=== PATIENT | male | born 1955 | race Two or more races ===

== ENCOUNTER 2020-02-09 13:45 | Outpatient (CLI) | payer MEDICARE | END 2020-02-09 23:59 | disposition home health service (06) | LOC: WOU 13:45 | PROVIDERS: ATTEND Podiatrist Foot & Ankle Surgery | DX: E11.621 Type 2 diabetes mellitus with foot ulcer (principal); E11.52 Type 2 diabetes mellitus with diabetic peripheral angiopathy with gangrene; I96 Gangrene, not elsewhere classified; L97.515 Non-pressure chronic ulcer of other part of right foot with muscle involvement without evidence of necrosis; L97.412 Non-pressure chronic ulcer of right heel and midfoot with fat layer exposed; L97.528 Non-pressure chronic ulcer of other part of left foot with other specified severity; E11.69 Type 2 diabetes mellitus with other specified complication; M86.9 Osteomyelitis, unspecified; Z79.4 Long term (current) use of insulin; Z89.432 Acquired absence of left foot; Z89.431 Acquired absence of right foot; Z79.82 Long term (current) use of aspirin; Z79.899 Other long term (current) drug therapy | CPT/HCPCS: G0463 ==

== ENCOUNTER 2020-03-01 13:10 | Outpatient (CLI) | payer MEDICARE | END 2020-03-01 23:59 | disposition home health service (06) | LOC: WOU 13:10 | PROVIDERS: ATTEND Podiatrist Foot & Ankle Surgery | DX: E11.621 Type 2 diabetes mellitus with foot ulcer (principal); L97.528 Non-pressure chronic ulcer of other part of left foot with other specified severity; L97.513 Non-pressure chronic ulcer of other part of right foot with necrosis of muscle; L97.412 Non-pressure chronic ulcer of right heel and midfoot with fat layer exposed; S81.012D Laceration without foreign body, left knee, subsequent encounter; X58.XXXD Exposure to other specified factors, subsequent encounter; E11.42 Type 2 diabetes mellitus with diabetic polyneuropathy; E11.52 Type 2 diabetes mellitus with diabetic peripheral angiopathy with gangrene; E11.69 Type 2 diabetes mellitus with other specified complication; M86.9 Osteomyelitis, unspecified; Z79.4 Long term (current) use of insulin; Z79.02 Long term (current) use of antithrombotics/antiplatelets; Z79.82 Long term (current) use of aspirin; Z89.432 Acquired absence of left foot; Z89.431 Acquired absence of right foot | CPT/HCPCS: 11043 ==